=== PATIENT | male | born 1950 | race African-American/Black ===

== ENCOUNTER → 2017-12-20 | Day surgery (SDC) | payer MEDICARE ==
[2017-12-19 10:39] LABS: BASOPHILS % 0.5 % (0.0-1.0); EOSINOPHILS # (AUTO) 0.4 (0.0-0.4); EOSINOPHILS % 4.4 % (0.0-6.0); HEMATOCRIT 39.1 % (38.2-49.6); LYMPHOCYTES # (AUTO) 3.2 (1.0-3.2); MEAN CORPUSCULAR HEMOGLOBIN 33.3 pg (28-32); MEAN CORPUSCULAR HGB CONC 35.8 g/dL (31-35); MEAN CORPUSCULAR VOLUME 92.9 fL (81-99); MONOCYTES # (AUTO) 0.6 (0.2-0.8); MONOCYTES % 7.6 % (4.4-11.3); NEUTROPHILS # (AUTO) 3.9 (2.1-6.9); NEUTROPHILS % 48.3 % (38.7-80.0); PLATELET COUNT 263 x10e3/uL (140-360); RED BLOOD COUNT 4.21 x10e6/uL (4.3-5.7); RED CELL DISTRIBUTION WIDTH 13.1 % (11.7-14.4)
--- NOTE | 2017-12-19 10:42 | Diagnostic Imaging Report ---
PROCEDURE:CHEST 2 VIEWS TECHNIQUE:PA and lateral chest totaling 3 radiographs INDICATION:Preoperative evaluation for hernia repair COMPARISON:None. FINDINGS: Left lower lobe,. The lungs are otherwise clear and symmetrically inflated. No pleural effusions. Normal heart size, mediastinal contour, and pulmonary vasculature. Intact skeleton. CONCLUSION: No acute abnormality. Dictated by: Anurag Laureano M.D. on 12/19/2017 at 10:44 Electronically approved by: Anurag Laureano M.D. on 12/19/2017 at 10:44
[2017-12-19 10:56] LABS: ANION GAP 12.6 mmol/L (8-16); BLOOD UREA NITROGEN 14 mg/dL (7-26); BUN/CREATININE RATIO 15 (6-25); CALCIUM 10.5 mg/dL (8.4-10.2); CARBON DIOXIDE 31 mmol/L (22-29); CHLORIDE 102 mmol/L (98-107); CREATININE, SERUM 0.95 mg/dL (0.72-1.25); EST GLOMERULAR FILTRATION RATE > 60 ML/MIN (60-); GLUCOSE 107 mg/dL (74-118); POTASSIUM 3.6 mmol/L (3.5-5.1); SODIUM 142 mmol/L (136-145)
[~2017-12-20] MED LIST: AMLODIPINE BESYL5 MG PO; BUPIVACAINE 0.25%/EPI 30ML SDV INJ ONE; CEFAZOLIN SOD 1 GM VIAL ONE; DEXAMETHASONE SOD PHOS INJ 4 MG/ML VIAL ONE; FENTANYL CITRATE/PF 100MCG/2 ML INJ ONE; GLYCOPYRROLATE INJ 1MG/ 5 ML SYR ONE; HYDROCODONE/APAP 7.5MG-325MG 1 EA TAB ONE; LEVOTHYROXINE50 MCG PO; LIDOCAINE HCL 2% LOCAL INJ 5 ML SDV VIAL INJ ONE; LOZOL 2.5MG2.5 MG PO; MIDAZOLAM HCL 2 MG/2 ML VIAL ONE; NEOSTIGMINE 1 MG/ML 10ML VIAL ONE; NEOSTIGMINE 5 MG/5ML SYR ONE; ONDANSETRON HCL INJ 2 MG/ML VIAL ONE; PROPOFOL IV EMULSION 10 MG/ML 20 ML VIAL ONE; ROCURONIUM BROMIDE 10 MG/ML 5ML VIAL ONE; SEVOFLURANE INHAL SOLN 250 ML PEN BTL ONE; SIMVASTATIN40 MG PO; SODIUM CHLORIDE 0.9% 50ML 50 ML ONE
--- OUTSIDE RECORDS SUMMARY | 2017-12-20 05:26 | XMS REPORT ---
Author Author [facility] Address Unknown Phone Unavailable Care Team Providers Care Certified Pedorthotist Name Role Phone ANUSHA GONZALES Unavailable Unavailable Problems This patient has no known problems. Allergies, Adverse Reactions, Alerts This patient has no known allergies or adverse reactions. Medications This patient has no known medications. Results Test Description Test Time Test Comments Text Results Atomic Results Result Comments CHEST 2 VIEWS [place] [address] Patient Name: BRAYDEN AGGARWAL MR #: [id number] : 1950 Age/Sex: 67/M Req #: [id number] Adm Physician: Ordered by: BAM FREIRE MD Report #: [id number] Location: OR Room/Bed: Procedure: 0531- 0030 DX/CHEST 2 VIEWS Exam Date: 12/19/17 Exam Time : 1015 REPORT STATUS: Signed PROCEDURE: CHEST 2 VIEWS TECHNIQUE: PA and lateral chest totaling 3 radiographs INDICATION: Preoperative evaluation for hernia repair COMPARISON: None. FINDINGS: Left lower lobe,. The lungs are otherwise clear and symmetrically inflated. No pleural effusions. Normal heart size, mediastinal contour, and pulmonary vasculature. Intact skeleton. CONCLUSION: No acute abnormality. Dictated by: Jovita Laureano M.D. on 12/19/2017 at 10:44 Electronically approved by: Jovita Laureano M.D. on 12/19/2017 at 10:44 Dictated By: JOVITA LAUREANO MD [id number] Transcribed By: ARINA on 12/19/17 1044 COPY TO: BAM FREIRE MD
--- NOTE | 2017-12-20 13:35 | Operative Report ---
DATE OF PROCEDURE: December 20, 2017 PREOPERATIVE DIAGNOSIS: Right inguinal hernia. POSTOPERATIVE DIAGNOSIS: Right inguinal hernia. PROCEDURE PERFORMED: Repair right inguinal hernia. DIRT CONTRACTOR: REYMUNDO Farmer. ESTIMATED BLOOD LOSS: Minimal. DRAINS: None. COMPLICATIONS: None. INDICATIONS AND FINDINGS: A 67-year-old male admitted for repair of symptomatic right inguinal hernia. INTRAOPERATIVE FINDINGS: The patient had a direct hernia at the level of the internal ring with herniation of a saccular area of properitoneal fat. There was no indirect hernia sac. The UltraPro hernia system oval type was placed. The hernia was reduced. There was no evidence of femoral herniation. Of note is the fact that this patient had a right lower quadrant McBurney's incision and there was no evidence of herniation arising from the appendectomy operative site. DESCRIPTION OF PROCEDURE: With the patient lying on the operative table in the supine position after administration of general anesthesia, he was prepped and draped for repair of right inguinal hernia. Preemptive anesthesia was given with 0.25% Marcaine with epinephrine as an ilioinguinal nerve block and an incisional nerve block. A transverse incision was made deep into the skin, subcutaneous tissue, Rhys fascia until the external oblique aponeurosis was identified. This was incised along the course of its fibers, transecting the external inguinal ring. Medial and lateral leaves were developed. The cord was mobilized at the level of the pubic tubercle and retracted away from the operative field by a Boston drain. The cremaster veil was incised. An indirect hernia sac was searched for, and none was found. There was a herniation of properitoneal fat through a saccular saucer-shaped type of a mass and defect through the internal ring. This area was dissected free from the cord and the internal inguinal ring until we were able to freely reduce the herniation. A pocket was created using blunt dissection to accommodate the mesh, and then the UltraPro hernia system oval type was deployed with the underlay part of the mesh over the direct space and the overlay part of the mesh over the inguinal canal floor. A slit was made to accommodate the cord, and then the mesh was secured to local tissues using a series of interrupted 2-0 Ethibond suture. The wound was irrigated. Bleeding points were cauterized. Then the wound was closed in layers using 2-0 Vicryl for the external oblique aponeurosis, 2-0 catgut for the soft tissues, and the skin was closed using jesus. Marcaine 0.25% with epinephrine was given as a local block. The patient tolerated the procedure well, was taken to the recovery room in stable condition. Job#: [id number]
== END | disposition home or self-care (01) ==
LOC: OR 05:24
PROVIDERS: ATTEND Surgery
DX: K40.90 Unilateral inguinal hernia, without obstruction or gangrene, not specified as recurrent (principal); I10 Essential (primary) hypertension; E03.9 Hypothyroidism, unspecified; Z01.810 Encounter for preprocedural cardiovascular examination; Z01.812 Encounter for preprocedural laboratory examination; Z01.818 Encounter for other preprocedural examination
CPT/HCPCS: 36415; 49505; 71046; 80048; 85025; 93005; C1781; J0690; J1100; J2001; J2250; J2405; J2710; J3490

== ENCOUNTER 2019-01-30 08:46 | Emergency (ER) | payer MEDICARE ==
[~2019-01-30] VITALS: Ht 175.3 cm; Wt 93.0 kg
[~2019-01-30 08:46] MED LIST changes: -BUPIVACAINE 0.25%/EPI 30ML SDV INJ ONE; -CEFAZOLIN SOD 1 GM VIAL ONE; -DEXAMETHASONE SOD PHOS INJ 4 MG/ML VIAL ONE; -FENTANYL CITRATE/PF 100MCG/2 ML INJ ONE; -GLYCOPYRROLATE INJ 1MG/ 5 ML SYR ONE; -HYDROCODONE/APAP 7.5MG-325MG 1 EA TAB ONE; -LIDOCAINE HCL 2% LOCAL INJ 5 ML SDV VIAL INJ ONE; -MIDAZOLAM HCL 2 MG/2 ML VIAL ONE; -NEOSTIGMINE 1 MG/ML 10ML VIAL ONE; -NEOSTIGMINE 5 MG/5ML SYR ONE; -ONDANSETRON HCL INJ 2 MG/ML VIAL ONE; -PROPOFOL IV EMULSION 10 MG/ML 20 ML VIAL ONE; -ROCURONIUM BROMIDE 10 MG/ML 5ML VIAL ONE; -SEVOFLURANE INHAL SOLN 250 ML PEN BTL ONE; -SODIUM CHLORIDE 0.9% 50ML 50 ML ONE
== END 2019-01-30 09:02 | disposition home or self-care (01) ==
LOC: ER 08:46
DX: L02.11 Cutaneous abscess of neck (principal); L02.414 Cutaneous abscess of left upper limb; I10 Essential (primary) hypertension; E11.9 Type 2 diabetes mellitus without complications
CPT/HCPCS: 10061; 99284

== ENCOUNTER 2019-03-14 19:41 | Inpatient (IN) | payer MEDICARE ==
[~2019-03-14] VITALS: Ht 175.3 cm; Wt 90.9 kg
[2019-03-14] MEDS ORDERED: SODIUM CHLORIDE 0.9% 1000ML 1,000 ML IV STA (19:53)
[2019-03-14] MEDS ORDERED: ACETAMINOPHEN 325 MG TAB PO ONE (20:00)
[2019-03-14] MEDS ORDERED: SODIUM CHLORIDE 0.9% 1000ML 1,000 ML IV SCH (20:01)
[2019-03-14 20:08] LABS: BASOPHILS # (AUTO) 0.1 (0.0-0.1); BASOPHILS % 0.3 % (0.0-1.0); EOSINOPHILS # (AUTO) 0.2 (0.0-0.4); EOSINOPHILS % 1.5 % (0.0-6.0); HEMATOCRIT 37.9 % (38.2-49.6); HEMOGLOBIN 13.3 g/dL (14.0-18.0); LYMPHOCYTES # (AUTO) 2.8 (1.0-3.2); LYMPHOCYTES % 17.9 % (18.0-39.1); MEAN CORPUSCULAR HEMOGLOBIN 32.8 pg (28-32); MEAN CORPUSCULAR HGB CONC 35.1 g/dL (31-35); MEAN CORPUSCULAR VOLUME 93.6 fL (81-99); MONOCYTES # (AUTO) 1.2 (0.2-0.8); MONOCYTES % 7.6 % (4.4-11.3); NEUTROPHILS # (AUTO) 11.2 (2.1-6.9); NEUTROPHILS % 72.4 % (38.7-80.0); PLATELET COUNT 271 x10e3/uL (140-360); RED BLOOD COUNT 4.05 x10e6/uL (4.3-5.7); RED CELL DISTRIBUTION WIDTH 13.1 % (11.7-14.4)
[2019-03-14] MEDS ORDERED: LEVOTHYROXINE25 MCG PO (20:08)
[2019-03-14] MEDS ORDERED: ONDANSETRON HCL INJ 2MG/ML 2ML 2 MG/ML VIAL IV PRN (20:15)
[2019-03-14] MEDS ORDERED: MORPHINE SULFATE 2 MG/ML SYR 1ML IV PRN (20:15)
[2019-03-14] MEDS: VANCOMYCIN 1GM/NS 250 ML 250 ML IV SCH (20:24)
[2019-03-14 20:25] LABS: ALANINE AMINOTRANSFERASE 34 IU/L (0-55); ALKALINE PHOSPHATASE 61 IU/L (40-150); ANION GAP 16.9 mmol/L (8-16); BLOOD UREA NITROGEN 15 mg/dL (7-26); BUN/CREATININE RATIO 15 (6-25); CALCIUM 10.2 mg/dL (8.4-10.2); CARBON DIOXIDE 27 mmol/L (22-29); CHLORIDE 99 mmol/L (98-107); EST GLOMERULAR FILTRATION RATE > 60 ML/MIN (60-); GLUCOSE 102 mg/dL (74-118); SODIUM 140 mmol/L (136-145)
[2019-03-14] MEDS ORDERED: POTASSIUM CHLORIDE 20 MEQ TAB CR PO STA (20:32)
[2019-03-14 20:34] LABS: POTASSIUM 2.9 mmol/L (3.5-5.1)
[2019-03-14] MEDS ORDERED: KCL 20MEQ/.9 SOD CHL 1,000 ML IV ONE (20:45)
[2019-03-14] MEDS ORDERED: ACETAMINOPHEN 325 MG TAB PO PRN (20:45)
[2019-03-14] MEDS ORDERED: LUMIGAN2.5 M1 OU (20:56)
[2019-03-14] MEDS ORDERED: ALPHAGAN P5 M1 OU (20:56)
[2019-03-14 21:15] VITALS: BP 123/74
[2019-03-14 21:17] VITALS: BP 123/74
[2019-03-14] MEDS: PIPER-TAZ 3.375 GM 50 ML IV SCH (21:30)
[2019-03-15] VITALS (8 sets, daily range): BP systolic 112–135; BP diastolic 64–85
[2019-03-15 04:19] LABS: BASOPHILS % 0.2 % (0.0-1.0); EOSINOPHILS # (AUTO) 0.3 (0.0-0.4); EOSINOPHILS % 2.1 % (0.0-6.0); HEMATOCRIT 33.9 % (38.2-49.6); LYMPHOCYTES # (AUTO) 2.6 (1.0-3.2); LYMPHOCYTES % 21.9 % (18.0-39.1); MEAN CORPUSCULAR HEMOGLOBIN 33.1 pg (28-32); MEAN CORPUSCULAR HGB CONC 35.4 g/dL (31-35); MEAN CORPUSCULAR VOLUME 93.6 fL (81-99); MONOCYTES # (AUTO) 1.2 (0.2-0.8); MONOCYTES % 9.8 % (4.4-11.3); NEUTROPHILS # (AUTO) 7.9 (2.1-6.9); NEUTROPHILS % 65.7 % (38.7-80.0); PLATELET COUNT 243 x10e3/uL (140-360); RED BLOOD COUNT 3.62 x10e6/uL (4.3-5.7)
[2019-03-15 04:49] LABS: ALANINE AMINOTRANSFERASE 28 IU/L (0-55); ALBUMIN 3.5 g/dL (3.5-5.0); ALKALINE PHOSPHATASE 53 IU/L (40-150); ANION GAP 13.9 mmol/L (8-16); BLOOD UREA NITROGEN 13 mg/dL (7-26); BUN/CREATININE RATIO 16 (6-25); CALCIUM 9.4 mg/dL (8.4-10.2); CARBON DIOXIDE 27 mmol/L (22-29); CHLORIDE 103 mmol/L (98-107); CREATININE, SERUM 0.82 mg/dL (0.72-1.25); EST GLOMERULAR FILTRATION RATE > 60 ML/MIN (60-); GLUCOSE 83 mg/dL (74-118); SODIUM 141 mmol/L (136-145)
[2019-03-15 04:58] LABS: POTASSIUM 2.9 mmol/L (3.5-5.1)
--- NOTE | 2019-03-15 05:00 | NUR ---
K 2.9, BHARGAV RHEOSTAT ASSEMBLER IN TO SEE PATIENT. NEW ORDERS JERRELL'Og.
[2019-03-15] MEDS: PIPER-TAZ 3.375 GM 50 ML IV SCH ×3 (05:32→22:32)
[2019-03-15] MEDS ORDERED: POTASSIUM CHLORIDE 20 MEQ TAB CR PO STA (05:46)
[2019-03-15] MEDS ORDERED: ACETAMINOPHEN 325 MG TAB PO PRN (06:00)
[2019-03-15] MEDS ORDERED: HYDRALAZINE HCL 20 MG/ML VIAL IV PRN (06:00)
[2019-03-15] MEDS ORDERED: HYDROCODONE/APAP 5MG-325MG TAB PO PRN (06:15)
--- NOTE | 2019-03-15 07:16 | NUR ---
PATIENT IN BED WITH HEAD OF BED ELEVATED WATCHING TV, NO DISTRESS NOTED. REDNESS AND SWELLING TO RIGHT INDEX FINGER, SMALL ABSCESS TO LEFT LATERAL THIGH. DENIED PAIN. BED IN LOWER POSITION, CALL LIGHT AT REACH.
[2019-03-15] MEDS: FAMOTIDINE 20 MG TAB PO SCH ×2 (07:51→16:55)
[2019-03-15] MEDS: VANCOMYCIN 1GM/NS 250 ML 250 ML IV SCH ×2 (08:00→20:00)
[2019-03-15] MEDS ORDERED: BRIMONIDINE TARTRATE (OPTH) 5 ML LIQD OP SCH (09:00)
[2019-03-15] MEDS: LEVOTHYROXINE SODIUM 25 MCG TABLET PO SCH (09:46)
[2019-03-15] MEDS ORDERED: GADOBENATE DIMEGLUMINE 1 ML IV ONE (09:55)
--- NOTE | 2019-03-15 12:13 | Diagnostic Imaging Report ---
TECHNIQUE: Magnetic resonance imaging of the RIGHT HAND was performed WITH and WITHOUT injected contrast, 19 cc of intravenous MultiHance. Notified regarding availability of the images for interpretation on March 16, 2019 at 1445. HISTORY: Boils, rule out abscess, osteomyelitis, tenosynovitis COMPARISON: None available FINDINGS: Bones: No focal or infiltrative bone marrow replacing abnormalities identified. No acute fracture or osteonecrosis. Joints: No dislocation or effusion. Soft Tissues: Edema and hyperemia, most notably prominent of the index finger and dorsal aspect of the hand. Within the radial and dorsal soft tissues of the hand, centered within the area of edema and hyperemia, a relative nonenhancing area without associated drainable fluid collection. IMPRESSION: 1. Findings compatible with cellulitis, most the index finger and dorsal soft tissues of the hand. 2. Central probable phlegmon versus draining abscess at the radial and dorsal aspect of the proximal index finger. 3. No evidence of osteomyelitis, tenosynovitis, or drainable loculated abscess. A preliminary report was provided by Dr. Villanueva. Signed by: Dr. Angelo Lin D.O., M.M.M. on 03/16/2019 3:01 PM
[2019-03-15] MEDS: BIMATOPROST(OPTH) 2.5 ML BOTTLE OP SCH (20:56)
[2019-03-15] MEDS: ALPHAGAN P 0.1% OP SCH (20:56)
[2019-03-15] MEDS: SIMVASTATIN 40 MG TAB PO SCH (20:56)
[2019-03-15] MEDS ORDERED: SODIUM CHLORIDE 0.9% 250ML 250 ML ONE (22:32)
[2019-03-16] VITALS (8 sets, daily range): BP systolic 112–144; BP diastolic 57–74
[2019-03-16 03:53] LABS: BASOPHILS % 0.3 % (0.0-1.0); EOSINOPHILS # (AUTO) 0.3 (0.0-0.4); EOSINOPHILS % 2.7 % (0.0-6.0); HEMOGLOBIN 11.9 g/dL (14.0-18.0); LYMPHOCYTES # (AUTO) 2.9 (1.0-3.2); LYMPHOCYTES % 25.1 % (18.0-39.1); MEAN CORPUSCULAR HEMOGLOBIN 33.1 pg (28-32); MEAN CORPUSCULAR VOLUME 94.7 fL (81-99); MONOCYTES # (AUTO) 0.8 (0.2-0.8); MONOCYTES % 6.5 % (4.4-11.3); NEUTROPHILS # (AUTO) 7.4 (2.1-6.9); NEUTROPHILS % 65.1 % (38.7-80.0); PLATELET COUNT 258 x10e3/uL (140-360); RED BLOOD COUNT 3.59 x10e6/uL (4.3-5.7); RED CELL DISTRIBUTION WIDTH 12.9 % (11.7-14.4)
[2019-03-16 04:11] LABS: ANION GAP 13.4 mmol/L (8-16); BLOOD UREA NITROGEN 10 mg/dL (7-26); BUN/CREATININE RATIO 12 (6-25); CALCIUM 9.2 mg/dL (8.4-10.2); CARBON DIOXIDE 26 mmol/L (22-29); CHLORIDE 103 mmol/L (98-107); CREATININE, SERUM 0.83 mg/dL (0.72-1.25); EST GLOMERULAR FILTRATION RATE > 60 ML/MIN (60-); GLUCOSE 115 mg/dL (74-118); POTASSIUM 3.4 mmol/L (3.5-5.1); SODIUM 139 mmol/L (136-145)
[2019-03-16 05:08] LABS: CHOL/HDL RATIO 3.5 (3.9-4.7)
[2019-03-16 05:12] LABS: FREE T4 (FREE THYROXINE) 0.76 ng/dL (0.8-1.8)
[2019-03-16] MEDS ORDERED: POTASSIUM CHLORIDE 20 MEQ TAB CR PO STA (05:46)
[2019-03-16] MEDS: PIPER-TAZ 3.375 GM 50 ML IV SCH ×3 (06:05→22:07)
[2019-03-16] MEDS: FAMOTIDINE 20 MG TAB PO SCH ×2 (08:29→16:53)
[2019-03-16] MEDS: LEVOTHYROXINE SODIUM 25 MCG TABLET PO SCH (08:29)
[2019-03-16] MEDS: ALPHAGAN P 0.1% OP SCH ×2 (08:29→21:00)
[2019-03-16] MEDS: VANCOMYCIN 1GM/NS 250 ML 250 ML IV SCH ×2 (08:29→21:40)
--- NOTE | 2019-03-16 09:43 | NUR ---
EDUCATED ABOUT IMM, SIGNED, FILED IN CHART, WITH COPY LEFT WITH FAMILY AT BEDSIDE.
[2019-03-16] MEDS ORDERED: LIDOCAINE 1% W/EPINEPHRINE 20 ML VIAL INJ ONE ×3 (10:00→14:00)
--- NOTE | 2019-03-16 10:23 | NUR ---
WOUND CARE NURSE INITIAL CONSULTATION. 68 YEAR OLD MALE ADMITTED TO [facility] WITH DX OF ABSCESS AND CELLULITIS TO RIGHT HAD. UPON ASSESSMENT RIGHT INDEX FINGER PRESENTS WITH 0.2X0.2X0.1 WOUND, SMALL SEROUS DRAINAGE, ERYTHEMA AND SWELLING IS ALSO PRESENT. MRI SUGGEST SMALL ABSCESS AND NO SIGNAL OF OSTEOMYELITIS. DR. GRULLON CONSULTED AND WROTE ORDERS IN CHART FOR WARM SOAKS AND CONTINUE WITH IV ABX. PT ALSO PRESENTS WITH AN AREA OF INDURATION TO LEFT DISTAL THIGH. NO DRAINAGE IS NOTED AT THIS TIME. DR. MAN CONSULTED AND PT IS SCHEDULED FOR I&D THIS AFTERNOON. THERE WERE NO OTHER AREAS OF CONCERN NOTED AT THIS TIME. LABS: WBC: 11.46 ALB: 3.5 BLOOD AND WOUND CX RESULTS ARE PENDING. RECOMMENDATIONS: CONTINUE WITH CURRENT ORDERS. RECONSULT WOUND CARE PRN. THANKS FOR THIS CONSULTATION. Addendum: 03/16/19 at 1035 by Tegan Brooks RN Amended: Links added.
--- NOTE | 2019-03-16 12:14 | Progress Note ---
DATE: 03/16/2019 The patient remains afebrile. The pertinent physical exam shows the right index finger swelling has markedly improved. There is a small open wound, which is draining purulent exudate, but this is deemed to be superficial. The patient will continue intravenous antibiotics, warm soaks as necessary. We will continue to follow the patient along. MD RODGER Mijares/MODL /[id number]
--- NOTE | 2019-03-16 12:25 | Consultation ---
DATE OF CONSULTATION: CONSULT REQUESTED BY: Clifton Burgos MD Consult requested to David Dalal MD, Hand Surgery. CHIEF COMPLAINT: Infection, right index finger. HISTORY OF PRESENT ILLNESS: The patient is a 68-year-old male, who was admitted on March 14 in the late evening, the history is that the patient has a history of cutaneous abscesses all over his body. He states that he developed an area of infection on the dorsal radial aspect of the right index finger several days prior to admission and tried to "drain it himself by puncturing it." The patient presented to the emergency room with swelling, pain, and erythema of the area. He was admitted and started on intravenous antibiotics. The following morning, an MRI with contrast was obtained and shows no discrete abscess nor surgically drainable lesions, more importantly it shows no purulent tenosynovitis involving the extensor tendon sheath. PERTINENT PHYSICAL EXAMINATION: VITAL SIGNS: The patient is afebrile and vital signs are stable. EXTREMITIES: The right index finger has swelling and erythema between the MP and the PIP joints, there is a small open wound which appears to be draining purulent exudate. LABORATORY DATA: The patient's white blood cell count on admission was 15,000, following 24 hours of intravenous antibiotics, this is decreased to 12,000. The MRI shows a 1 cm x 1 cm hypointense collection, which is a superficial abscess and no evidence of osteomyelitis or tenosynovitis. The subcutaneous tissues consistent with cellulitis. IMPRESSION: Cellulitis, right index finger. PLAN: The patient will continue on intravenous antibiotics. I have suggested that they perform elevation and warm soaks to the area to increase circulation. We will follow the patient along as needed. Thank you for allowing to participate in the care of your patient. David Dalal MD ER/MODL /[id number]
--- NOTE | 2019-03-16 19:27 | NUR ---
Patient received lying in bed. AAO x 4. Patient had no complaints of pain. No signs of respiratory distress. Fall precautions implemented. Patient instructed to call for assistance when needed. Call light within reach.
[2019-03-16] MEDS: BIMATOPROST(OPTH) 2.5 ML BOTTLE OP SCH (21:00)
[2019-03-16] MEDS: SIMVASTATIN 40 MG TAB PO SCH (21:40)
[2019-03-17] VITALS (8 sets, daily range): BP systolic 93–134; BP diastolic 52–69
--- NOTE | 2019-03-17 03:26 | NUR ---
Blood specimen sent to lab for analysis.
[2019-03-17 03:54] LABS: BASOPHILS % 0.4 % (0.0-1.0); EOSINOPHILS # (AUTO) 0.4 (0.0-0.4); EOSINOPHILS % 4.4 % (0.0-6.0); HEMATOCRIT 33.7 % (38.2-49.6); HEMOGLOBIN 11.7 g/dL (14.0-18.0); LYMPHOCYTES # (AUTO) 2.9 (1.0-3.2); LYMPHOCYTES % 31.3 % (18.0-39.1); MEAN CORPUSCULAR HGB CONC 34.7 g/dL (31-35); MEAN CORPUSCULAR VOLUME 94.9 fL (81-99); MONOCYTES # (AUTO) 0.7 (0.2-0.8); MONOCYTES % 7.5 % (4.4-11.3); NEUTROPHILS # (AUTO) 5.2 (2.1-6.9); NEUTROPHILS % 56.2 % (38.7-80.0); PLATELET COUNT 275 x10e3/uL (140-360); RED BLOOD COUNT 3.55 x10e6/uL (4.3-5.7); RED CELL DISTRIBUTION WIDTH 12.6 % (11.7-14.4)
[2019-03-17 04:10] LABS: ANION GAP 12.3 mmol/L (8-16); BLOOD UREA NITROGEN 11 mg/dL (7-26); BUN/CREATININE RATIO 14 (6-25); CALCIUM 9.1 mg/dL (8.4-10.2); CARBON DIOXIDE 25 mmol/L (22-29); CHLORIDE 105 mmol/L (98-107); CREATININE, SERUM 0.81 mg/dL (0.72-1.25); EST GLOMERULAR FILTRATION RATE > 60 ML/MIN (60-); GLUCOSE 124 mg/dL (74-118); POTASSIUM 3.3 mmol/L (3.5-5.1); SODIUM 139 mmol/L (136-145)
[2019-03-17] MEDS: PIPER-TAZ 3.375 GM 50 ML IV SCH ×3 (05:25→22:19)
--- NOTE | 2019-03-17 06:44 | NUR ---
Shift report given to oncoming nurse regarding patient's status.
[2019-03-17] MEDS ORDERED: POTASSIUM CHLORIDE 20MEQ/100ML 100 ML IV ONE (06:45)
[2019-03-17] MEDS: FAMOTIDINE 20 MG TAB PO SCH ×2 (07:30→16:24)
[2019-03-17] MEDS: LEVOTHYROXINE SODIUM 25 MCG TABLET PO SCH (09:17)
[2019-03-17] MEDS: ALPHAGAN P 0.1% OP SCH ×2 (09:17→21:00)
[2019-03-17] MEDS: VANCOMYCIN 1GM/NS 250 ML 250 ML IV SCH ×3 (09:18→22:16)
--- NOTE | 2019-03-17 09:30 | NUR ---
Dr. Aviles here to see the patient. Decision made not to perform I&D on left lower thigh abscess. Dr. Aviles states, "Not needed, it's getting smaller and it's indurated." Patient asking about right finger. Dr. aviles informed him that the hand surgeon will see him for that issue. Patient verbalized understanding.
--- NOTE | 2019-03-17 19:22 | NUR ---
Patient received lying in bed. No acute distress noted. Call light within reach.
[2019-03-17] MEDS: BIMATOPROST(OPTH) 2.5 ML BOTTLE OP SCH (21:00)
[2019-03-17] MEDS: SIMVASTATIN 40 MG TAB PO SCH (21:00)
--- NOTE | 2019-03-17 21:25 | NUR ---
Blood specimen sent to lab for analysis of Vancomycin level.
[2019-03-18 00:58] VITALS: BP 133/78
[2019-03-18 03:59] LABS: BASOPHILS % 0.4 % (0.0-1.0); EOSINOPHILS # (AUTO) 0.5 (0.0-0.4); EOSINOPHILS % 4.9 % (0.0-6.0); HEMATOCRIT 36.5 % (38.2-49.6); HEMOGLOBIN 12.4 g/dL (14.0-18.0); MEAN CORPUSCULAR HEMOGLOBIN 32.6 pg (28-32); MEAN CORPUSCULAR VOLUME 96.1 fL (81-99); MONOCYTES # (AUTO) 0.7 (0.2-0.8); MONOCYTES % 7.2 % (4.4-11.3); NEUTROPHILS # (AUTO) 5.5 (2.1-6.9); NEUTROPHILS % 56.3 % (38.7-80.0); PLATELET COUNT 279 x10e3/uL (140-360); RED CELL DISTRIBUTION WIDTH 12.6 % (11.7-14.4)
[2019-03-18 04:17] LABS: ANION GAP 12.4 mmol/L (8-16); BLOOD UREA NITROGEN 14 mg/dL (7-26); BUN/CREATININE RATIO 17 (6-25); CALCIUM 9.4 mg/dL (8.4-10.2); CARBON DIOXIDE 25 mmol/L (22-29); CHLORIDE 104 mmol/L (98-107); CREATININE, SERUM 0.82 mg/dL (0.72-1.25); EST GLOMERULAR FILTRATION RATE > 60 ML/MIN (60-); GLUCOSE 122 mg/dL (74-118); POTASSIUM 3.4 mmol/L (3.5-5.1); SODIUM 138 mmol/L (136-145)
[2019-03-18 05:06] VITALS: BP 118/68
[2019-03-18] MEDS: PIPER-TAZ 3.375 GM 50 ML IV SCH (06:08)
--- NOTE | 2019-03-18 07:00 | NUR ---
Walking rounds done. Patient resting comfortably. Shift report given to oncoming nurse.
[2019-03-18] MEDS: FAMOTIDINE 20 MG TAB PO SCH (07:30)
--- NOTE | 2019-03-18 08:20 | NUR ---
CALL FROM LAB. CONTACT ISOLATION - MRSA ON WOUND - INFORMED MARY DURANT.
[2019-03-18 08:25] VITALS: BP 142/83
[2019-03-18] MEDS ORDERED: POTASSIUM CHLORIDE 20 MEQ TAB CR PO ONE (08:30)
[2019-03-18 09:00] VITALS: BP 142/83
[2019-03-18] MEDS: VANCOMYCIN 1GM/NS 250 ML 250 ML IV SCH (09:00)
[2019-03-18] MEDS ORDERED: RIFAMPIN300 MG PO (09:03)
[2019-03-18] MEDS ORDERED: BACTRIM DS TAB1 EACH PO (09:03)
[2019-03-18] MEDS: LEVOTHYROXINE SODIUM 25 MCG TABLET PO SCH (09:13)
[2019-03-18] MEDS: ALPHAGAN P 0.1% OP SCH (09:13)
--- NOTE | 2019-03-18 09:25 | NUR ---
THIGH WOUND CULTURE PENDING PER LAB. INFORMED MARY DURANT.
--- NOTE | 2019-03-18 09:30 | NUR ---
NO NEED OF THIGH WOUND CULTURE PER BHARGAV. OKAY TO D/C PT PER BHARGAV. INFORMED THE SAME TO THE PT. PT FAMILY WILL BE HERE ONLY BY 11.40 TO SURGICAL CONSULTANT PER THE PT.
[2019-03-18] MEDS ORDERED: ONDANSETRON HCL 4 MG ORAL DISINTEGRATING TAB PO PRN (10:45)
--- NOTE | 2019-03-18 11:17 | NUR ---
EDUCATED ABOUT IMM, SIGNED, FILED IN CHART, WITH COPY LEFT WITH FAMILY AT BEDSIDE.
--- NOTE | 2019-03-18 11:40 | NUR ---
PT DISCHARGED HOME SAFELY WITH FAMILY. PT ESCORTED TO THE FRONT ENTRANCE. IV REMOVED. TIP INTACT. NO BLEEDING NOTED. DRESSING APPLIED. PT DENIED FURTHER NEEDS.
--- NOTE | 2019-03-18 21:02 | Discharge Summary ---
ADMISSION DIAGNOSES: 1. Right index finger cellulitis, left thigh cellulitis, possible abscesses, present on admission with sepsis. 2. Hypertension. 3. Hyperlipidemia. 4. Hypothyroidism. DISCHARGE DIAGNOSES: 1. Right index finger cellulitis, left thigh cellulitis, possible abscesses, present on admission with sepsis. 2. Hypertension. 3. Hyperlipidemia. 4. Hypothyroidism. 5. Methicillin-resistant Staphylococcus aureus of the wound. HISTORY: Hypertension, hyperlipidemia, and hypothyroidism. SURGICAL HISTORY: Appendectomy, right foot surgery, left knee scope, and right inguinal hernia repair. FAMILY HISTORY: The patient's mom had diabetes and cancer. The patient's dad had cancer. SOCIAL HISTORY: Occasional alcohol use. HOSPITAL COURSE: A 68-year-old male complains of right finger and left thigh wound that began about 1 week ago. The swelling started then the pain began. He attempted to open the finger wound with a needle, but only got blood out. He denies fever. He had a similar episode 2 months ago, had an I and D and was sent home on an unknown antibiotic. The abscess resolved, but then returned. On admission, the patient was started on vancomycin and Zosyn. The hand surgeon was consulted and MRI of the hand was ordered. MRI showed findings compatible with cellulitis, central probable phlegmon versus draining abscess. No evidence of osteomyelitis, tenosynovitis, or drainable loculated abscess. Hand surgeon ordered antibiotics and warm soaks. Wound culture came back positive for MRSA. The left thigh wound continued to improve on antibiotics. General Surgery was following, but decided not to do an I and D. on the day of discharge, the thigh wound came to a head, so the patient will discharge home with p.o. antibiotics of rifampin and Bactrim. He does not want a PICC line and did not want to discharge home with IV antibiotics. He will continue the p.o. antibiotics for 2 more weeks and follow up with primary care in 1 to 2 weeks. The patient understands discharge instructions and agrees to plan. Vital signs stable. The patient is afebrile. Dictated by Sahara Jung NP MD CHUYITA Hernandez/MARIO ALBERTO /[id number]
== END 2019-03-18 11:43 | disposition home or self-care (01) | DRG 872 ==
LOC: ER 19:41 → ERHOLD 20:04 → MED/SURG2 21:17
PROVIDERS: ADMIT Internal Medicine; ATTEND Internal Medicine
DX: A41.9 Sepsis, unspecified organism (principal); L02.511 Cutaneous abscess of right hand; L03.011 Cellulitis of right finger; I10 Essential (primary) hypertension; E78.5 Hyperlipidemia, unspecified; B95.62 Methicillin resistant Staphylococcus aureus infection as the cause of diseases classified elsewhere; E03.9 Hypothyroidism, unspecified
CPT/HCPCS: 36415; 80048; 80053; 80061; 80202; 83605; 84439; 84443; 85025; 87040; 87071; 87186; 87205; 99284; J2543; J3370; J3480; J7050